=== PATIENT | male | born 2005 | race Caucasian/White ===

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

== ENCOUNTER 2025-03-18 11:54 | Emergency (ER) | payer OTHER ==
[~2025-03-18 11:54] MED LIST: ONDA-282 PO; PENI500T PO
[2025-03-18] MEDS: ALBUTEROL SULFATE 2.5 MG/0.5 ML INH CONCENTRATE NEB SOLN NEB ONE (14:38)
[2025-03-18] MEDS ORDERED: BENZ200C70 PO (14:39)
[2025-03-18] MEDS ORDERED: VENTAER INH (14:39)
[2025-03-18 14:45] VITALS: BP 126/64; TEMP 97.6; O2SAT 100
== END 2025-03-18 14:55 | disposition home or self-care (01) ==
LOC: M ED 11:54
DX: J20.9 Acute bronchitis, unspecified (principal)

== ENCOUNTER 2025-04-07 06:39 | Emergency (ER) | payer OTHER ==
[~2025-04-07] VITALS: Ht 177.8 cm; Wt 110.0 kg
[~2025-04-07 06:39] MED LIST changes: +BENZ200C70 PO; +VENTAER INH
[2025-04-07 07:20] LABS: BASO # 0.0 10^3/uL (0.0-0.2); BASO % 0.2 % (0.0-1.0); EOS # 0.1 10^3/uL (0.0-0.5); EOS % 1.3 % (0.0-3.0); LYMPH # 2.8 10^3/uL (1.5-5.0); LYMPH % 32.4 % (24.0-44.0); MONO # 0.8 10^3/uL (0.0-0.8); MONO % 9.8 % (2.0-8.0); NEUTROPHILS # 4.8 10^3/uL (1.5-8.5); NEUTROPHILS % 56.1 % (36.0-66.0); PLATELET COUNT, AUTOMATED 246 10^3/uL (150-450)
[2025-04-07 07:45] LABS: CALCIUM LEVEL 9.0 MG/DL (8.5-10.1); CARBON DIOXIDE LEVEL 27 MMOL/L (20-31); CHLORIDE LEVEL 103 MMOL/L (98-107); CK-MB VALUE MASS < 1.0 NG/ML (<3.6); CPK CREATINE PHOSPHOKINASE 98 U/L (46-171); CREATININE FOR GFR 0.92 MG/DL (0.70-1.30); GLOMERULAR FILTRATION RATE > 90.0 (>60); POTASSIUM SERUM 4.1 MMOL/L (3.5-5.1); SODIUM LEVEL 141 MMOL/L (136-145)
[2025-04-07] MEDS ORDERED: GI COCKTAIL 50 ML BTL(HYOSCYAMINE/MAALOX/LIDOCAINE VISCOUS)(1:3:1) PO ONE (07:45)
[2025-04-07] MEDS: OMEPRAZOLE 20MG CAP PO ONE (08:46)
[2025-04-07] MEDS: SUCRALFATE 1 GM TAB PO ONE (08:46)
[2025-04-07 09:00] VITALS: TEMP 97.6
[2025-04-07 09:15] VITALS: BP 134/88
[2025-04-07] MEDS ORDERED: ALBU8.5H INH (09:22)
[2025-04-07] MEDS ORDERED: OMEP40CA4 PO (09:22)
[2025-04-07 09:30] VITALS: O2SAT 99
== END 2025-04-07 09:35 | disposition home or self-care (01) ==
LOC: M ED 06:39
DX: K21.9 Gastro-esophageal reflux disease without esophagitis (principal); K58.9 Irritable bowel syndrome, unspecified